=== PATIENT | female | born 1970 | race Caucasian/White ===

== ENCOUNTER 2017-10-28 15:04 | Emergency (ER) | payer SELFPAY ==
[~2017-10-28] VITALS: Ht 162.6 cm; Wt 136.1 kg
[~2017-10-28 15:04] MED LIST: ATROVENT 0.03%30 M1 NASAL; AZITHROMYCIN250 MG ORAL; BENAZEPRIL HCL20 MG ORAL; CYCLOBENZAPRINE10 MG ORAL; IBUPROFEN800 MG ORAL; PROMETHAZINE V237 ML ORAL; SYNTHROID175 MCG PO
[2017-10-28] MEDS ORDERED: AMLODIPINE BESYL5 MG ORAL (15:22)
[2017-10-28] MEDS ORDERED: METFORMIN HCL1000 M1 ORAL (15:22)
[2017-10-28] MEDS ORDERED: SYNTHROID175 MCG ORAL (15:23)
[2017-10-28] MEDS ORDERED: NORCO 5-325 TA1 EAC1 ORAL (15:48)
[2017-10-28 16:00] VITALS: BP 119/75
[2017-10-28] MEDS ORDERED: HYDROcodone/Acetamin 10/325 tab ORAL ONE (16:00)
[2017-10-28 16:03] VITALS: BP 119/75
[2017-10-28] MEDS ORDERED: ROBITUSSIN COU237 M1 PO (16:03)
--- NOTE | 2017-10-28 21:56 | Emergency Room Report ---
History of Present Illness General Chief Complaint: Pain Source: Patient Present Illness HPI The patient is a 47-year-old female with a stated history of chronic back pain due to sciatica presenting for back pain as well as coughing which began this morning. She denies any known sick contacts recent travel. She states that her back pain began after lifting a TV. She has not been able to follow up with her primary doctor. Pain is a 10 out of 10 dull ache to the mid lower back and radiates down the left leg. She states that this is typical for her. She is also complaining of sore throat and cough since this morning. She denies other symptoms including fever, chills, SOB, CP Allergies: Coded Allergies: No Known Allergies (Unverified , 01/30/13) Patient History Past Medical History: see triage record Pertinent Family History: none Last Menstrual Period: "They melted the lining 5-6 years ago." Now: No Reviewed Nursing Documentation: PMH: Agreed, PSxH: Agreed Nursing Documentation-PMH Hx Cardiac Problems: No - HYPOTHYROID Hx Hypertension: Yes Hx Diabetes: Yes Review of Systems All Other Systems: negative except mentioned in HPI Physical Exam Vital Signs Date Time Temp Pulse Resp B/P (MAP) Pulse Ox O2 Delivery O2 Flow Rate FiO2 10/28/17 15:17 98.1 86 21 119/75 100 Room Air Sp02 EP Interpretation: reviewed, normal General Appearance: no apparent distress, alert, GCS 15, non-toxic Head: normocephalic, atraumatic Eyes: bilateral eye normal inspection, bilateral eye PERRL ENT: hearing grossly normal, normal pharynx, no angioedema, normal voice, pharyngeal erythema Neck: full range of motion, supple/symm/no masses Respiratory: chest non-tender, lungs clear, normal breath sounds, no accessory muscle use, no wheezing, speaking full sentences Musculoskeletal: normal inspection, back normal, gait/station normal, normal range of motion, tender - lumbar paraspinal muscles Neurologic: alert, oriented x3, responsive, motor strength/tone normal, sensory intact, speech normal Psychiatric: judgement/insight normal, memory normal, mood/affect normal, no suicidal/homicidal ideation Skin: normal color, no rash, warm/dry, well hydrated Lymphatic: no adenopathy Medical Decision Making PA Attestation Dr. Lobato is my supervising physician. Patient management was discussed with my supervising physician Diagnostic Impression: Primary Impression: Upper respiratory infection Qualified Codes: J06.9 - Acute upper respiratory infection, unspecified Additional Impression: Chronic back pain Qualified Codes: M54.40 - Lumbago with sciatica, unspecified side; G89.29 - Other chronic pain ER Course The patient is a 47-year-old female with a stated history of chronic back pain due to sciatica presenting for back pain as well as coughing which began this morning. Ddx considered include but not limited to lumbar strain, degenerative disease, bronchitis, pharyngitis, epidural abscess, cauda equina, chronic pain, narcotic dependency. PE: Afebrile. NAD HEENT exam is unremarkable. No lymphadenopathy. Tenderness to palpation over lumbar paraspinal muscles. No midline tenderness or step-offs. CURES report shows no recent prescriptions She'll be discharged home with pain medication and cough medication and needs to followup with her primary doctor for further care. ER precautions given Last Vital Signs Date Time Temp Pulse Resp B/P (MAP) Pulse Ox O2 Delivery O2 Flow Rate FiO2 10/28/17 16:03 98.1 75 21 119/75 100 Room Air Status: improved Disposition: HOME, SELF-CARE Condition: Improved Scripts Guaifenesin/Dextromethorphan (ROBITUSSIN COUGH-CHEST DM LIQ) 237 Ml Liquid 10 ML PO Q4HR, #237 ML Prov: ANSHU MCGUIRE.A. 10/28/17 Hydrocodone Bit/Acetaminophen 5-325* (NORCO 5-325 TABLET*) 1 Each Tablet 1 TAB ORAL Q6HR Y for For Pain, #8 TAB Prov: ANSHU MCGUIRE.A. 10/28/17 Referrals: NOT CHOSEN [facility]/,REFERRING (PCP) Patient Instructions: Chronic Pain Additional Instructions: I discussed my findings with the patient. All questions and concerns have been answered. Treatment and medication compliance have been addressed. I advised the patient that they need to follow up with PMD in 3-5 days. Return to ED if symptoms worsen, new symptoms arise, or if needed for any reason. Patient verbalized understanding of discharge instructions. You have been advised to seek pain management for further care. ANSHU MCGUIRE Oct 28, 2017 21:56
== END 2017-10-28 16:05 | disposition home or self-care (01) ==
LOC: EMR 15:50
DX: J06.9 Acute upper respiratory infection, unspecified (principal); M54.42 Lumbago with sciatica, left side; G89.29 Other chronic pain; I10 Essential (primary) hypertension; E11.9 Type 2 diabetes mellitus without complications; E03.9 Hypothyroidism, unspecified
CPT/HCPCS: 99283